=== PATIENT | male | born 1950 | race Caucasian/White ===

== ENCOUNTER 2017-05-26 04:36 | Emergency (ER) | payer MEDICARE, OTHER ==
[~2017-05-26] VITALS: Ht 175.3 cm; Wt 89.8 kg
[2017-05-26] MEDS ORDERED: METO-351 (04:59)
[2017-05-26] MEDS ORDERED: METO-270 (04:59)
[2017-05-26] MEDS ORDERED: LOSA25TA21 PO (04:59)
[2017-05-26] MEDS ORDERED: METF1000 PO (04:59)
[2017-05-26] MEDS ORDERED: ATOR40TA70 PO (04:59)
--- NOTE | 2017-05-26 05:03 | ED EENT ---
History of Present Illness General Chief Complaint: Ear Problems Stated Complaint: RT EAR SWOLLEN,PAINFUL Nursing Triage Note: Pt hear to report right ear pain since Wednesday night. No resp sx reported. Right ear is very painful Source: patient, spouse Exam Limitations: no limitations History of Present Illness Time seen by provider: 04:52 Initial Comments Patient has ER by private conveyance with his with chief complaint of 2 days of right ear pain no fevers nausea chills dizziness off balance tinnitus or discharge. He is diabetic. He is taking all his meds properly. He says he does daily put a Q-tip to his ear canals clean them out because he has itching. He does not use Zyrtec Flonase or any other kind of antihistamine. He denies having any history of allergies or hayfever. Allergies and Home Medications Allergies Coded Allergies: No Known Drug Allergies (Unverified , 05/26/17) Home Medications Atorvastatin Calcium 40 Mg Tablet, 40 MG PO HS, #90 (Reported) Losartan Potassium 25 Mg Tablet, 25 MG PO HS, #90 (Reported) Metformin HCl 1,000 Mg Tablet, 1,000 MG PO BID, #180 (Reported) Metoprolol Succinate 25 Mg Tab.er.24h, #90 (Reported) Metoprolol Succinate 25 Mg Tab.er.24h, #90 (Reported) Neomycin/Polymyxin B Sulf/Hc 10 Ml Drops.susp, 2 DROPS OT QIDACHS for 10 Days, # 10 Ref 0 Prescribed by: DANIEL ALEJO on 05/26/17 0504 Review of Systems Constitutional: No chills, No diaphoresis, No fever, No malaise Eyes: Denies Blurred Vision, Denies Drainage Ears: See HPI, Pain, Denies Bloody Discharge, Denies Clear Discharge, Denies Purulent Discharge, Denies Previous Injury Nose: denies clots, denies congestion Mouth: denies pain, denies swelling Throat: denies pain, denies swelling Respiratory: No cough, No short of breath Gastrointestinal: No nausea, No vomiting Skin: No pruritus, No rash Neurological: Denies Headache, Denies Numbness, Denies Paresthesia Past Ubrajhe-Hdujqd-Ddenmv Hx Patient Social History Alcohol Use: Denies Use Recreational Drug Use: No Smoking Status: Former Smoker 2nd Hand Smoke Exposure: No Recent Foreign Travel: No Contact w/Someone Who Travel: No Recent Infectious Disease Expo: No Recent Hopitalizations: No Seasonal Allergies Seasonal Allergies: No Surgeries Surgeries: Coronary Stent Cardiovascular Cardiac Disorders: Coronary Artery Disease, High Cholesterol, Hypertension HEENT Hearing Impairment: Bilateral Hearing Aide Physical Exam Vital Signs Vital Sign - Last 12Hours 05/26/17 04:45 Temp 98.2 Pulse 74 Resp 20 B/P (MAP) 154/85 Pulse Ox 96 O2 Delivery Room Air General Appearance: WD/WN, no apparent distress Eyes: bilateral eye EOMI, bilateral eye PERRL, bilateral eye normal inspection Ears: right ear erythema (canal), right ear swelling, right ear tenderness, left ear TM normal, left ear canal normal, bilateral ear auricle normal Nose: normal inspection, No discharge Mouth/Throat: No dental tenderness, other (pharyngeal erythema) Neck: non-tender, supple, normal inspection Cardiovascular: normal peripheral pulses, regular rate, rhythm Respiratory: chest non-tender, lungs clear Neurologic/Psychiatric: alert, oriented x 3 Skin: normal color, warm/dry Progress/Results/Core Measures Results/Orders Vital Signs/I&O Vital Sign - Last 12Hours 05/26/17 04:45 Temp 98.2 Pulse 74 Resp 20 B/P (MAP) 154/85 Pulse Ox 96 O2 Delivery Room Air Blood Pressure Mean: 108 Departure Impression Impression: Primary Impression: Otitis externa Qualified Codes: H60.501 - Unspecified acute noninfective otitis externa, right ear Disposition: 01 HOME, SELF-CARE Condition: Stable Departure-Patient Inst. Decision time for Depature: 04:59 Referrals: NO,LOCAL PHYSICIAN (PCP/Family) Primary Care Physician Patient Instructions: Outer Ear Infection (DC) Add. Discharge Instructions: Do not stick anything in your ear canal. If you feel the need clean your ear canal 2-3 times a week you can place 50% hydrogen peroxide and 50% water in your canal and let it boil for 20-30 seconds before draining. Do not place any packing or wax products back in your ear. You have an infection in your outer ear canal which given the fact that your diabetic could progress to a much worse infection. We'll put you on antibiotic ear drops to be placed 2 drops in the right ear 4 times a day for the next 10 days. If your pain is getting worse or you develop a fever or nausea or other worrisome symptoms you should return to a doctor immediately. Otherwise you should expect improvement by day 2-3. Keep the hearing aid out of your right ear while you're on antibiotics. All discharge instructions reviewed with patient and/or family. Voiced understanding. Scripts Neomycin/Polymyxin B Sulf/Hc (Daekqltu-Edwbzcqjx-Ta Ear Susp) 10 Ml Drops.susp 2 DROPS OT QIDACHS for 10 Days, #10 ML 0 Refills Prov: DANIEL ALEJO 05/26/17 DANIEL ALEJO May 26, 2017 05:03
[2017-05-26] MEDS ORDERED: NEOM10DR42 OT (05:04)
[2017-05-26 05:08] VITALS: BP 154/85
== END 2017-05-26 05:08 | disposition home or self-care (01) ==
LOC: ER 04:42
DX: H60.91 Unspecified otitis externa, right ear (principal); I25.10 Atherosclerotic heart disease of native coronary artery without angina pectoris; E78.00 Pure hypercholesterolemia, unspecified; I10 Essential (primary) hypertension; E11.9 Type 2 diabetes mellitus without complications; Z97.4 Presence of external hearing-aid; Z87.891 Personal history of nicotine dependence; Z95.5 Presence of coronary angioplasty implant and graft
CPT/HCPCS: 99282